=== PATIENT | female | born 1990 | race Caucasian/White ===

== ENCOUNTER 2023-10-05 11:54 | Emergency (ER) | payer BC, SELFPAY ==
--- NOTE | ~2023-10-05 | CT_ITS ---
EXAMINATION: CT abdomen pelvis w con DATE: 10/05/2023 14:45 INDICATION: Right lower quadrant abdominal pain. TECHNIQUE: Computed tomography (CT) of the abdomen and pelvis was performed with 100 mL Omnipaque 350 intravenous contrast. Automated exposure control and iterative reconstruction technique were employe d. The dose-length product was 254.45 mGy-cm. COMPARISON: None. FINDINGS: The visualized portions of the lung bases are clear without pneumonia or pleural effusion. The heart size is normal. No pericardial effusion. The liver is normal. There are changes of cholecys tectomy. The spleen, pancreas, adrenal glands, and kidneys are normal. There are no dilated loops of bowel. The appendix is normal. There are no pathologically enlarged lymph nodes. There is no free int raperitoneal fluid. The periuterine veins and left ovarian vein are enlarged, consistent with pelvic venous insufficiency. There is thoracolumbar levoscoliosis. IMPRESSION: 1. Pelvic venous insufficiency. Reviewed, dictated and finalized at location A.
[2023-10-05 11:59] VITALS: BP 111/83; PULSE 128; RESP 20; TEMP 36.6; O2SAT 99
[2023-10-05 12:34] VITALS: BP 134/97; O2SAT 100
[2023-10-05 12:44] LABS: Basophils Percent Auto 0.4 % (0.2-1.2); Eosinophils Absolute Auto 0.1 K/mm3 (0-0.3); Eosinophils Percent Auto 0.7 % (0-4.4); Hematocrit 46.8 % (37.0-47.0); Immature Granulocyte Absolute 0.02 K/mm3 (0.00-0.031); Immature Granulocyte Percent A 0.2 % (0-0.5); Lymphocytes Absolute Auto 2.01 K/mm3 (0.9-3.2); Lymphocytes Percent Auto 20.5 % (18.3-44.2); Mean Corpuscular HGB Conc 32.1 g/dl (32-36); Mean Corpuscular Hemoglobin 28.7 pg (26-34); Mean Corpuscular Volume 89.5 fl (80-100); Mean Platelet Volume 12.3 fl (7.4-10.4); Monocytes Absolute Auto 0.6 K/mm3 (0.1-0.6); Monocytes Percent Auto 5.8 % (2.6-8.5); Neutrophils Absolute Auto 7.1 K/mm3 (1.3-6.7); Neutrophils Percent Auto 72.4 % (45.5-73.1); Platelet Count Result 305 k/mm3 (150-375); Red Blood Count 5.23 M/mm3 (4.2-5.4); Red Cell Distribution Width 12.6 % (11.5-14.5); White Blood Count 9.8 K/mm3 (4.5-10.0)
[2023-10-05 13:00] LABS: Alanine Aminotransferase 22 U/L (6-35); Alkaline Phosphatase 79 U/L (38-126); Anion Gap 10 mmol/L (4-12); Aspartate Amino Transferase 28 U/L (14-36); Bilirubin,Total 0.6 mg/dL (0.2-1.3); Blood Urea Nitrogen 16 mg/dL (7-17); Calcium 9.7 mg/dL (8.4-10.2); Carbon Dioxide 24 mmol/L (22-30); Chloride 102 mmol/L (98-107); Estimated CRCL calculation 76 ml/min; Estimated Glomerular Filt Rate > 60; Glucose 84 mg/dL (65-110); Lipase 103 U/L (23-300); Potassium 3.9 mmol/L (3.4-5.0); Sodium 136 mmol/L (137-145)
--- NOTE | 2023-10-05 14:11 | ED.ABDPAIN ---
HPI - Abdominal Pain General Chief Complaint: Abdominal Pain Stated Complaint: abd pain Time Seen by Provider: 10/05/23 12:52 History of Present Illness HPI narrative: Patient is a healthy 32-year-old female with history of PCOS, prior cholecystectomy here with abdominal pain and vomiting. Patient states that Wednesday evening her vomiting began, she vomited continuously for about 20 hours and continues to have some significant nausea. She did kessler he notes some suprapubic and periumbilical pain, does note some pain above her umbilicus as well as in the right side of her abdomen. She did have a fever at home of 100.6 F. She denies any associated diarrhea. She does note she had some burning with urination last week which seems to have resolved this week. Patient continues to feel nauseous and weak, believes she is dehydrated. She does have a history of prior egg donation, last egg retrieval round was in February of 2023, she did 8 separate cycles, is not currently on any additional medications for this. Does not believe she could be . Related Data Home Medications Medication Instructions Recorded Confirmed dextroamphetamine-amphetamine ER 25 mg PO DAILY 06/15/22 25 mg 24hr capsule,extend release (Adderall XR) sertraline 50 mg tablet 50 mg PO DAILY 06/15/22 spironolactone 100 mg tablet 100 mg PO DAILY 06/15/22 Allergies Allergy/AdvReac Type Severity Reaction Status Date / Time No Known Allergies Allergy Verified 10/05/23 12:04 Review of Systems Review of Systems: All systems reviewed & are unremarkable except as noted in HPI and below PMFSH Past Medical History Medical History ADD (attention deficit disorder) Anxiety History of in vitro fertilization In vitro fertilization using donor eggs IBS (irritable bowel syndrome) Surgical History Surgical History History of cholecystectomy History of removal of ovarian cyst [place] teeth extracted Family History Family History Father Diabetes mellitus Hypertension Grandparent Breast cancer Malignant neoplasm of ovary Social History Social History Smoking status: Never smoker Alcohol intake: current Alcohol use details: occasional Substance use: never Occupation/Education: occupation Additional occupation/education comments: banker Gender identity (if verbalized by the patient): Female Sexual Orientation (if Verbalized by the Patient): Straight or Heterosexual Exam Narrative: GENERAL: Well-appearing, well-nourished, and in no acute distress. HEAD: Normocephalic, atraumatic. EYES: PERRLA and EOMI. ENT: Nares clear. Mucous membranes dry. NECK: Supple. CHEST: Clear to auscultation. No respiratory distress. HEART: Tachycardic. Normal peripheral pulses. ABDOMEN: Soft, tender in the suprapubic region, periumbilical region and RLQ, no rebound or guarding, nondistended. No CVA tenderness. EXTREMITIES: Normal range of motion. No edema. SKIN: Warm, dry, no rash. NEURO: No focal deficits. Alert and oriented x3. PSYCH: Normal mood and affect. Course Course Emergency Course: Chart review performed, patient here with abdominal pain, bloating, vomiting x2 days, endorsed a low-grade fever, afebrile in triage however she is tachycardic. One prior OBGYN visit in our system, she was seen for ovarian cysts. Triage workup reviewed, CBC unremarkable with a hemoglobin of 15, white blood cell count of 9.8. Electrolytes within normal limits, normal renal function, normal LFTs. Lipase normal. Patient seen evaluated, she is tachycardic and has some periumbilical and lower abdominal tenderness, concern for possible UTI versus colitis versus appendicitis. Will do CT abdomen pelvis, IV fluids, pain medication, antiemetics.
[2023-10-05] MEDS: MORPHINE SULFATE (*CRX) 4 MG/ML INJ IV PUSH (14:28)
[2023-10-05] MEDS: LACTATED RINGERS 1,000 ML 999 ML IV CONT (14:28)
[2023-10-05] MEDS: ONDANSETRON INJ 4 MG/2 ML VIAL IV PUSH (14:28)
[2023-10-05 14:31] VITALS: BP 132/86; PULSE 92; RESP 16; O2SAT 99
[2023-10-05 14:48] LABS: Appearance Urine Cloudy (Clear); Bacteria Urine 4+ /hpf; Bilirubin Urine Negative (Negative); Blood Urine Negative (Negative); Color Urine Dark Yellow (Yellow); Glucose Urine UA Negative (Negative); Ketones Urine 2+ mg/dL (Negative); Leukocyte Esterase Ur Negative LEU/UL (Negative); Need Manual Microscopic Reviewed; Nitrate Urine Negative (Negative); Protein Urine Trace mg/dL (Negative); Specific Grav Ur 1.038 (1.001-1.035); Squamous Epithelial Cell Urine Few /hpf (Few); pH Urine 5.5 (5.0-9.0)
[2023-10-05 14:49] LABS: Add Urine Microscopic? YES
[2023-10-05] MEDS: SODIUM CHLORIDE 0.9% IV 1,000 ML 999 ML IV CONT (15:17)
[2023-10-05 15:45] VITALS: BP 116/76; PULSE 76; RESP 16; TEMP 36.7; O2SAT 100
--- NOTE | 2023-10-07 15:41 | PC.NURSE ---
Message left with patient at [phone] on 10/07/23 at 1443 to return my call regarding testing. Patient returned my call at 1530. This director advised patient that her urine culture was not able to be processed by [facility] lab and that we recommended that she return to have a new specimen collected. Patient verbalized understanding. She was given directions for outpatient lab and informed that she would only be charged for one urine/culture test.
== END 2023-10-05 16:00 | disposition home or self-care (01) ==
PROVIDERS: Physician Assistant; Emergency Provider Student in an Organized Health Care Education/Training Program; PCP Physician Assistant
DX: N39.0 Urinary tract infection, site not specified (principal); E28.2 Polycystic ovarian syndrome; K58.9 Irritable bowel syndrome, unspecified; F98.8 Other specified behavioral and emotional disorders with onset usually occurring in childhood and adolescence; F41.9 Anxiety disorder, unspecified; Z90.49 Acquired absence of other specified parts of digestive tract; Z79.899 Other long term (current) drug therapy; I87.2 Venous insufficiency (chronic) (peripheral); N94.89 Other specified conditions associated with female genital organs and menstrual cycle
CPT/HCPCS: 36415; 74177; 80053; 81001; 81025; 83690; 85025; 87086; 96361; 96365; 96375; 99284; J0696; J2270; J2405; J7030; J7120; Q9967

== ENCOUNTER 2023-10-07 16:40 | Outpatient (CLI) | payer BC, SELFPAY | END 2023-10-07 16:41 | disposition home or self-care (01) | LOC: ANHLAB 16:41 | PROVIDERS: PCP Physician Assistant | DX: R11.10 Vomiting, unspecified (principal) | CPT/HCPCS: 87086 ==

== ENCOUNTER 2024-08-28 10:25 | Emergency (ER) | payer BC, SELFPAY ==
--- NOTE | ~2024-08-28 | CT_ITS ---
CT of the Abdomen and Pelvis: Indication: Abdominal pain Technique: 2.5 mm axial scans were obtained through the abdomen and pelvis following intravenous adm inistration of 100 cc of Omnipaque 350. Dose reduction technique was used on this scan by utilizing a utomated exposure control and iterative reconstruction technique. The dose-length product (DLP) was 3 53.22 mGy-cm. COMPARISON: 09/27/2023 Findings: Scans through the lung bases are unremarkable. The liver, spleen, pancreas, adrenals and kidneys are within normal limits. Cholecystectomy clips are present. No evidence of aortic aneurysm. No lymphadenopathy. No bowel obstruction or bowel wall thickening. There is no evidence to suggest acute appendicitis. Images through the pelvis were performed. Urinary bladder unremarkable. No pelvic mass seen. No ascit es. Impression: No significant abnormalities seen. Reviewed, dictated and finalized at [facility]. Impression: No significant abnormalities seen.
[2024-08-28 10:33] VITALS: BP 133/94; PULSE 100; RESP 18; TEMP 36.7; O2SAT 100
[2024-08-28 11:00] VITALS: BP 120/83; PULSE 96; RESP 17; O2SAT 99
--- NOTE | 2024-08-28 11:25 | ED_ITS ---
HPI - Abdominal Pain General Chief Complaint: Abdominal Pain Stated Complaint: abd pain, n/v Time Seen by Provider: 08/28/24 10:41 History of Present Illness HPI narrative: Patient is a 33-year-old female who presents to the ER with complaints of left upper quadrant abdominal pain. She reports her symptoms started abruptly this morning. Patient endorses vomiting multiple times prior to arrival. She also reports ?I am always bloated. She reports her last bowel movement was this morning and was normal for her. She denies any urinary symptoms, recent fevers, back pain. Patient nurses a history of cholecystectomy, constipation, and abdominal hernia. Related Data Home Medications ?Medication ?Instructions ?Recorded ?Confirmed ?Last Taken ?Type dextroamphetamine-amphetamine ER 25 mg PO DAILY 06/15/22 10/21/23 Unknown History 25 mg 24hr capsule,extend release (Adderall XR) sertraline 50 mg tablet 50 mg PO DAILY 06/15/22 10/21/23 Unknown History spironolactone 100 mg tablet 100 mg PO DAILY 06/15/22 10/21/23 Unknown History Allergies Allergy/AdvReac Type Severity Reaction Status Date / Time No Known Allergies Allergy Verified 08/28/24 10:25 Review of Systems 2 Review of Systems: All systems reviewed & are unremarkable except as noted in HPI and below PMFSH Past Medical History Medical History IBS (irritable bowel syndrome) Anxiety History of in vitro fertilization In vitro fertilization using donor eggs ADD (attention deficit disorder) Surgical History Surgical History [place] teeth extracted History of removal of ovarian cyst History of cholecystectomy Family History Family History Father Diabetes mellitus Hypertension Grandparent Breast cancer Malignant neoplasm of ovary Social History Social History Smoking status: Never smoker Alcohol intake: current Alcohol use details: occasional Substance use: never Do You Feel Safe in your Home?: Yes Lack of Transportation: No Lack of Food: Never True Current Housing: I Have Housing Concerned About Future Housing: No Difficulty Paying Gas/Electric Bills: No Difficulty Paying for Meds: No Currently Unemployed: No Education: Associate Degree Difficulty w/ Childcare or Family Care: No Living arrangements: with family Occupation/Education: occupation Additional occupation/education comments: banker Gender identity (if verbalized by the patient): Female Sexual Orientation (if Verbalized by the Patient): Straight or Heterosexual Exam 2 Narrative: GENERAL: Well appearing, well-nourished, non-toxic, in mild distress d/t pain. HEAD: Normocephalic, atraumatic. NECK: Supple. No adenopathy, no masses. RESPIRATORY: Airway patent, respirations nonlabored. Clear to auscultation bilaterally, no rales, rhonchi, wheezing. CARDIOVASCULAR: Regular rate and rhythm without murmurs, rubs, or gallops. Peripheral pulses 2+ and equal bilaterally. ABDOMINAL: Soft, tender LUQ, nondistended, no hepatosplenomegaly. Normoactive BS. MUSCULOSKELETAL: Moves all extremities. Strength/ROM intact without gross deformities. SKIN: Warm, dry, normal color. No rashes. NEURO: A&O X3. Speech clear. Cranial nerves II-XII intact. No ataxic movements. PSYCHIATRIC: Appropriate mood and affect. Normal interaction. Course Vital Signs Vital signs: Vital Signs Temperature 36.7 C 08/28/24 10:33 Pulse Rate 100 08/28/24 10:33 Respiratory Rate 18 08/28/24 10:33 Blood Pressure 133/94 H 08/28/24 10:33 Pulse Oximetry 100 08/28/24 10:33 Temperature 36.7 C 08/28/24 10:33 Pulse Rate 87 08/28/24 16:00 Respiratory Rate 18 08/28/24 16:00 Blood Pressure 107/78 08/28/24 16:00 Pulse Oximetry 99 08/28/24 16:00 MDM - Abdominal Pain MDM Narrative Medical decision making narrative: Patient is a 33-year-old female who presents to the ER with complaints of left upper quadrant abdominal pain. She reports her symptoms started abruptly this morning. Patient endorses vomiting multiple times prior to arrival. She also reports ?I am always bloated. She reports her last bowel movement was this morning and was normal for her. She denies any urinary symptoms, recent fevers, back pain. Patient nurses a history of cholecystectomy, constipation, and abdominal hernia. Labs Ordered: CBC, CMP, UDS, UA, lipase Imaging Ordered: CT abdomen pelvis Medications Ordered: 1 L normal saline IV bolus, Pepcid IV, Zofran 4 mg Results: Patient's white blood cell count was 15.3. Her CMP is unremarkable. Patient's urinalysis was also unremarkable. Her CT scan indicated no acute abnormalities. Diagnosis: Gastroenteritis Patient Education/Shared MDM: Results lab work and imaging shared with patient. She endorses mild improvement following medication administration. Pt will be given Reglan and Benadryl for nausea and Bentyl for abdominal pain. She will be monitored for a short time afterwards then discharged home. Patient endorses significant relief following the Bentyl, her Reglan, and Benadryl. She reports she is ready to be discharged home. Patient strongly advised to maintain hydration status upon discharge and follow-up with her PCP as soon as possible. She will be discharged home with a prescription for Bentyl, Lactulose (has worked in the past) and Zofran. Strict return precautions provided. Patient verbalized understanding is in agreement with plan. Vital signs stable at time of discharge. All questions answered. Differential Diagnosis Differential diagnosis: Likely abdominal pain, acute appendicitis, calculus of kidney, constipation, diverticulitis, gastroenteritis, pancreatitis and small bowel obstruction Lab Data Attestation: I reviewed the patient's lab results. 08/28/24 11:21 08/28/24 11:21 Labs: Lab Results 08/28/24 08/28/24 08/28/24 Range/Units 11:21 11:27 12:36 WBC 15.3 H (4.5-10.0) K/mm3 RBC 4.61 (4.2-5.4) M/mm3 Hgb 13.4 (12.0-15.0) g/dL Hct 41.3 (37.0-47.0) % MCV 89.6 (80-100) fl MCH 29.1 (26-34) pg MCHC 32.4 (32-36) g/dl RDW 13.1 (11.5-14.5) % Plt Count 319 (150-375) k/mm3 MPV 11.3 H (7.4-10.4) fl Immature Gran % (Auto) 0.5 (0-0.5) % Neut % (Auto) 84.1 H (45.5-73.1) % Lymph % (Auto) 8.4 L (18.3-44.2) % [place] % (Auto) 5.4 (2.6-8.5) % Eos % (Auto) 1.3 (0-4.4) % Baso % (Auto) 0.3 (0.2-1.2) % Lymph # (Auto) 1.28 (0.9-3.2) K/mm3 [place] # (Auto) 0.8 H (0.1-0.6) K/mm3 Eos # (Auto) 0.2 (0-0.3) K/mm3 Baso # (Auto) 0.0 (0.0-0.1) K/mm3 Abs Immat Gran (auto) 0.07 H (0.00-0.031) K/mm3 Absolute Neuts (auto) 12.9 H (1.3-6.7) K/mm3 Absolute Nucleated RBC 0.000 (0.0-0.012) K/mm3 Nucleated RBC % 0.0 (0.0-0.2) % Sodium 137 (137-145) mmol/L Potassium 4.3 (3.4-5.0) mmol/L Chloride 103 (98-107) mmol/L Carbon Dioxide 23 (22-30) mmol/L Anion Gap 11 (4-12) mmol/L BUN 11 D (7-17) mg/dL Creatinine 0.79 (0.7-1.0) mg/dL Estim Creat Clear Calc 87 ml/min Estimated GFR > 60 (59 - ) Glucose 89 (65-110) mg/dL Calcium 9.3 (8.4-10.2) mg/dL Total Bilirubin 0.3 (0.2-1.3) mg/dL AST 25 (14-36) U/L ALT 22 (6-35) U/L Alkaline Phosphatase 68 (38-126) U/L Total Protein 8.0 (6.3-8.2) g/dL Albumin 4.6 (3.5-5.1) g/dL Lipase 81 (23-300) U/L Urine Color Dark yellow (Yellow) Urine Appearance Clear (Clear) Urine pH 5.5 (5.0-9.0) Ur Specific [place] 1.033 (1.001-1.035) Urine Protein Trace (Negative) mg/dL Urine Glucose (UA) Negative (Negative) mg/dL Urine Ketones Trace H (Negative) mg/dL Ur Blood (Man) Negative (Negative) Urine Nitrate Negative (Negative) Urine Bilirubin Negative (Negative) Urine Urobilinogen 0.2 (<2.0) mg/dL Add Ur Microanalysis Reviewed Leukocyte Esterase Rfl Negative (Negative) KEVIN/UL Urine RBC 0-2 (0-2) /hpf Urine WBC 0-5 (0-3) /hpf Ur Squamous Epith Cells None seen (Few) /hpf Urine Bacteria None seen /hpf Urine Casts 11-20 Granular Casts 5-9 H (None) /lpf Urine Mucus Present /lpf POC Urine HCG, Qual Negative (Negative) Urine Opiates Screen Negative (Negative) Urine Methadone Screen Negative (Negative) Ur Barbiturates Screen Negative (Negative) Ur Phencyclidine Scrn Negative (Negative) Ur Amphetamine Screen Positive A (Negative) U Benzodiazepines Scrn Negative (Negative) Urine Cocaine Screen Negative (Negative) U Cannabinoids Screen Negative (Negative) Imaging Data Attestation: I personally reviewed and interpreted this imaging study as follows: Radiologist's impression: ITS Impressions Abdomen/Pelvis CT 08/28/24 13:15 Impression: No significant abnormalities seen. Discharge Plan Discharge Clinical Impression: Gastroenteritis, Constipation Patient Disposition: Home Condition: Stable Instructions: Antibiotic Form, Constipation (ED), Gastroenteritis (ED) Additional Instructions: Please return to the ER with any worsening symptoms. Follow-up with primary care provider as soon as possible. Take all medications as prescribed, including regularly scheduled medications. Patient Language: Jordanian Prescriptions: New lactulose 20 gram packet 20 g PO QID Qty: 30 0RF dicyclomine 20 mg tablet 20 mg PO TID Qty: 20 0RF ondansetron 8 mg tablet,disintegrating 8 mg PO Q12H PRN (Reason: nausea and vomiting) Qty: 10 0RF No Action dextroamphetamine-amphetamine [Adderall XR] 25 mg capsule,extended release 24hr 25 mg PO DAILY sertraline 50 mg tablet 50 mg PO DAILY spironolactone 100 mg tablet 100 mg PO DAILY L norgest/e.estradiol-e.estrad 0.15 mg-30 mcg (84)/10 mcg (7) tablets,dose pack,3 month 1 tablet PO Q24H Qty: 91 4RF Follow-up/Referrals: Declan,MARIO Joe [Primary Care Provider] - Stand Alone Forms: Work/School Release IP Time of Disposition: 16:28
[2024-08-28 11:29] LABS: Basophils Percent Auto 0.3 % (0.2-1.2); Eosinophils Absolute Auto 0.2 K/mm3 (0-0.3); Eosinophils Percent Auto 1.3 % (0-4.4); Hematocrit 41.3 % (37.0-47.0); Hemoglobin 13.4 g/dL (12.0-15.0); Immature Granulocyte Absolute 0.07 K/mm3 (0.00-0.031); Immature Granulocyte Percent A 0.5 % (0-0.5); Lymphocytes Absolute Auto 1.28 K/mm3 (0.9-3.2); Lymphocytes Percent Auto 8.4 % (18.3-44.2); Mean Corpuscular HGB Conc 32.4 g/dl (32-36); Mean Corpuscular Hemoglobin 29.1 pg (26-34); Mean Corpuscular Volume 89.6 fl (80-100); Mean Platelet Volume 11.3 fl (7.4-10.4); Monocytes Absolute Auto 0.8 K/mm3 (0.1-0.6); Monocytes Percent Auto 5.4 % (2.6-8.5); Neutrophils Absolute Auto 12.9 K/mm3 (1.3-6.7); Neutrophils Percent Auto 84.1 % (45.5-73.1); Platelet Count Result 319 k/mm3 (150-375); Red Blood Count 4.61 M/mm3 (4.2-5.4); Red Cell Distribution Width 13.1 % (11.5-14.5); White Blood Count 15.3 K/mm3 (4.5-10.0)
[2024-08-28] MEDS: SODIUM CHLORIDE 0.9% IV 1,000 ML 999 ML IV CONT (11:33)
[2024-08-28] MEDS: FAMOTIDINE 20 MG/2 ML VIAL IV PUSH (11:34)
[2024-08-28] MEDS: ONDANSETRON INJ 4 MG/2 ML VIAL IV PUSH (11:34)
[2024-08-28 11:42] LABS: Alanine Aminotransferase 22 U/L (6-35); Albumin Level 4.6 g/dL (3.5-5.1); Alkaline Phosphatase 68 U/L (38-126); Anion Gap 11 mmol/L (4-12); Aspartate Amino Transferase 25 U/L (14-36); Bilirubin,Total 0.3 mg/dL (0.2-1.3); Blood Urea Nitrogen 11 mg/dL (7-17); Calcium 9.3 mg/dL (8.4-10.2); Carbon Dioxide 23 mmol/L (22-30); Chloride 103 mmol/L (98-107); Estimated CRCL calculation 87 ml/min; Estimated Glomerular Filt Rate > 60; Glucose 89 mg/dL (65-110); Lipase 81 U/L (23-300); Potassium 4.3 mmol/L (3.4-5.0); Sodium 137 mmol/L (137-145)
--- OUTSIDE RECORDS SUMMARY | 2024-08-28 11:47 | XMS_ITS | Clinical Summary ---
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
--- OUTSIDE RECORDS SUMMARY | 2024-08-28 11:47 | XMS_ITS | Data Portability ---
Author Organization [facility] Cassandra Carvalho Address [address] [place] [address] Care Team Providers Care Superintendent Nonselling Name Role Phone EM TURNER Primary Care Provider MARGARET [employer] Manager Assessment No assessment recorded. Plan of Treatment Reminders Order Date Submit Date Provider Last Modified By Organization Details Last Modified Time Details Appointments VIDEO VISIT 15 2024 01:30P M CRISTAL Cox Not available Not available Not available Lab CMP, serum or plasma 2024 025 [email or web address] [facility], [address], [place], [address], 07/10/2024 16:21:39 CBC w/ auto diff 2024 025 [email or web address] [facility], [address], [place], [address], 07/10/2024 16:21:39 TSH + free T4, serum 2024 025 [email or web address] [facility], [address], [place], [address], 07/10/2024 16:21:39 lipid panel, serum 2024 025 [email or web address] [facility], [address], [place], [address], 07/10/2024 16:21:39 HbA1c (hemoglob in A1c), blood [address], [address]22 [address], [place], [address], 07/10/2024 16:21:39 CMP, serum or plasma 2023 024 [facility], [address], [place], [address], 10/10/2023 08:36:47 CBC w/ auto diff 2023 024 [facility], [address], [place], [address], 10/10/2023 08:36:48 TSH + free T4, serum 2023 024 [facility], [address], [place], [address], 10/10/2023 08:36:47 lipid panel, serum 2023 024 [facility], [address], [place], [address], 10/10/2023 08:36:46 HbA1c (hemoglob in A1c), blood 2023 024 [facility], [address], [place], [address], 10/10/2023 08:36:48 Referral None recorded. Procedures None recorded. Surgeries None recorded. Imaging None recorded. Medication Orders dextroamp hetamine- amphetami ne ER 25 mg 24hr capsule,e xtend release 2023 024 [facility][id number], [address], [place], [id number], 03/31/2024 16:08:22 sertralin e 100 mg tablet 2023 [address]24 [address] [id number], [address] [facility], [place], [place], [id number], 10/07/2023 23:34:54 dextroamp hetamine- amphetami ne ER 25 mg 24hr capsule,e xtend release 2023 024 [facility] #[id number], [address] [facility], [place], [place], [id number], 09/17/2023 16:49:41 Patient TargetsNo targets recorded. Patient InstructionsNo instructions recorded. Reason for Referral None Reported. Results Created Date Observation Date Name Description Value Unit Range Abnormal Flag Note LastModifiedBy Organization Detail LastModifiedTime 10/09/19 24 10/10/2023 LIPID PANEL W/ CHOL/ HDL RATIO cholesterol, total 228 mg/dL 100-19 9 above high normal Not Available [facility] ([facility]) [address] [place], [address], 10/10/2023 08:36:46 10/09/19 24 10/10/2023 LIPID PANEL W/ CHOL/ HDL RATIO triglyceride s 92 mg/dL 0-149 Not Available [facility] ([facility]) [address] [place], [address], 10/10/2023 08:36:46 10/09/19 24 10/10/2023 LIPID PANEL W/ CHOL/ HDL RATIO HDL cholesterol 81 mg/dL >39 Not Available [facility] ([facility]) [address] [place], [address], 10/10/2023 08:36:46 10/09/19 24 10/10/2023 LIPID PANEL W/ CHOL/ HDL RATIO VLDL cholesterol juanito 16 mg/dL 5-40 Not Available [facility] ([facility]) [address] [place], [address], 10/10/2023 08:36:46 10/09/19 24 10/10/2023 LIPID PANEL W/ CHOL/ HDL RATIO LDL chol calc ([facility]) 131 mg/dL 0-99 above high normal Not Available [facility] ([facility]) [address] [place], [address], 10/10/2023 08:36:46 10/09/19 24 10/10/2023 LIPID PANEL W/ CHOL/ HDL RATIO T. chol/HDL ratio 2.8 ratio 0.0-4. 4 T. Chol/ HDL Ratio Men Women 1/2 Avg.R isk 3.4 3.3 Avg.R isk 5.0 4.4 2X Avg.R isk 9.6 7.1 3X Avg.R isk 23.4 11.0 Not Available [facility] ([facility]) [address] [place], [address], 10/10/2023 08:36:46 10/09/19 24 10/10/2023 TSH+F REE T4 TSH 2.210 uIU/m L 0.450- 4.500 Not Available [facility] ([facility]) [address] [place], [address], 10/10/2023 08:36:47 10/09/19 24 10/10/2023 TSH+F REE T4 T4,free(dire ct) 1.30 NG/dL 0.82-1 .77 Not Available [facility] ([facility]) [address] [place], [address], 10/10/2023 08:36:47 10/09/19 24 10/10/2023 COMP. METAB OLIC PANEL (14) glucose 88 mg/dL 70-99 Not Available [facility] ([facility]) [address] [place], [address], 10/10/2023 08:36:47 10/09/19 24 10/10/2023 COMP. METAB OLIC PANEL (14) BUN 8 mg/dL 6-20 Not Available [facility] ([facility]) [address] [place], [address], 10/10/2023 08:36:47 10/09/19 24 10/10/2023 COMP. METAB OLIC PANEL (14) creatinine 0.85 mg/dL 0.57-1 .00 Not Available [facility] ([facility]) [address] [facility], [place], [address], 10/10/2023 08:36:47 10/09/19 24 10/10/2023 COMP. METAB OLIC PANEL (14) eGFR 94 mL/mi n/1.7 3 >59 Not Available [facility] ([facility]) [address] [facility], [place], [address], 10/10/2023 08:36:47 10/09/19 24 10/10/2023 COMP. METAB OLIC PANEL (14) BUN/creatini ne ratio 9 9-23 Not Available [facility] ([facility]) [address] [facility], [place], [address], 10/10/2023 08:36:47 10/09/19 24 10/10/2023 COMP. METAB OLIC PANEL (14) sodium 137 mmol/ L 134-14 4 Not Available [facility] ([facility]) [address] [place], [address], 10/10/2023 08:36:47 10/09/19 24 10/10/2023 COMP. METAB OLIC PANEL (14) potassium 4.6 mmol/ L 3.5-5. 2 Not Available [facility] ([facility]) [address] [facility], [place], [address], 10/10/2023 08:36:47 10/09/19 24 10/10/2023 COMP. METAB OLIC PANEL (14) chloride 101 mmol/ L 96-106 Not Available [facility] ([facility]) [address] [facility], [place], [address], 10/10/2023 08:36:47 10/09/19 24 10/10/2023 COMP. METAB OLIC PANEL (14) carbon dioxide, total 21 mmol/ L 20-29 Not Available [facility] ([facility]) [address] [place], [address], 10/10/2023 08:36:47 10/09/19 24 10/10/2023 COMP. METAB OLIC PANEL (14) calcium 10.0 mg/dL 8.7-10 .2 Not Available [facility] ([facility]) [address] [facility], [place], [address], 10/10/2023 08:36:47 10/09/19 24 10/10/2023 COMP. METAB OLIC PANEL (14) protein, total 7.2 g/dL 6.0-8. 5 Not Available [facility] ([facility]) [address] [facility], [place], [address], 10/10/2023 08:36:47 10/09/19 24 10/10/2023 COMP. METAB OLIC PANEL (14) albumin 4.4 g/dL 4.0-5. 0 Not Available [facility] ([facility]) [address] [place], [address], 10/10/2023 08:36:47 10/09/19 24 10/10/2023 COMP. METAB OLIC PANEL (14) globulin, total 2.8 g/dL 1.5-4. 5 Not Available [facility] ([facility]) [address] [place], [address], 10/10/2023 08:36:47 10/09/19 24 10/10/2023 COMP. METAB OLIC PANEL (14) A/G ratio 1.6 1.2-2. 2 Not Available [facility] ([facility]) [address] [place], [address], 10/10/2023 08:36:47 10/09/19 24 10/10/2023 COMP. METAB OLIC PANEL (14) bilirubin, total <0.2 mg/dL 0.0-1. 2 Not Available [facility] ([facility]) [address] [facility], [place], [address], 10/10/2023 08:36:47 10/09/19 24 10/10/2023 COMP. METAB OLIC PANEL (14) alkaline phosphatase 69 IU/L 44-121 Not Available [facility] ([facility]) [address] [place], [address], 10/10/2023 08:36:47 10/09/19 24 10/10/2023 COMP. METAB OLIC PANEL (14) AST (SGOT) 14 IU/L 0-40 Not Available [facility] ([facility]) [address] [facility], [place], [address], 10/10/2023 08:36:47 10/09/19 24 10/10/2023 COMP. METAB OLIC PANEL (14) ALT (SGPT) 13 IU/L 0-32 Not Available [facility] ([facility]) [address] [facility], [place], [address], 10/10/2023 08:36:47 10/09/19 24 10/10/2023 HEMOG LOBIN A1C hemoglobin A1C 5.5 % 4.8-5. 6 Predi abete s: 5.7 - 6.4 Diabe mj: >6.4 Glyce andrés contr ol for adult s with diabe mj: <7.0 Not Available [facility] ([facility]) [address] [facility], [place], [address], 10/10/2023 08:36:48 10/09/19 24 10/10/2023 CBC WITH DIFFE RENTI AL/PL ATELE T WBC 5.5 x10e3 /uL 3.4-10 .8 Not Available [facility] ([facility]) [address] [facility], [place], [address], 10/10/2023 08:36:48 10/09/19 24 10/10/2023 CBC WITH DIFFE RENTI AL/PL ATELE T RBC 4.74 x10e6 /uL 3.77-5 .28 Not Available [facility] ([facility]) [address] [facility], [place], [address], 10/10/2023 08:36:48 10/09/19 24 10/10/2023 CBC WITH DIFFE RENTI AL/PL ATELE T hemoglobin 13.5 g/dL 11.1-1 5.9 Not Available [facility] ([facility]) [address] [facility], [place], [address], 10/10/2023 08:36:48 10/09/1910/10/2023 CBC WITH DIFFE RENTI AL/PL ATELE T hematocrit 41.9 % 34.0-4 6.6 Not Available [facility] ([facility]) [address] [facility], [place], [address], 10/10/2023 08:36:48 10/09/19 24 10/10/2023 CBC WITH DIFFE RENTI AL/PL ATELE T MCV 88 fL 79-97 Not Available [facility] ([facility]) [address] [place], [address], 10/10/2023 08:36:48 10/09/1910/10/2023 CBC WITH DIFFE RENTI AL/PL ATELE T MCH 28.5 pg 26.6-3 3.0 Not Available [facility] ([facility]) [address] [place], [address], 10/10/2023 08:36:48 10/09/19 24 10/10/2023 CBC WITH DIFFE RENTI AL/PL ATELE T MCHC 32.2 g/dL 31.5-3 5.7 Not Available [facility] ([facility]) [address] [place], [address], 10/10/2023 08:36:48 10/09/19 24 10/10/2023 CBC WITH DIFFE RENTI AL/PL ATELE T RDW 12.0 % 11.7-1 5.4 Not Available [facility] ([facility]) [address] [facility], [place], [address], 10/10/2023 08:36:48 10/09/19 24 10/10/2023 CBC WITH DIFFE RENTI AL/PL ATELE T platelets 279 x10e3 /uL 150-45 0 Not Available [facility] ([facility]) [address] [facility], [place], [address], 10/10/2023 08:36:48 10/09/19 24 10/10/2023 CBC WITH DIFFE RENTI AL/PL ATELE T neutrophils 56 % notest ab. Not Available [facility] ([facility]) [address] [facility], [place], [address], 10/10/2023 08:36:48 10/09/19 24 10/10/2023 CBC WITH DIFFE RENTI AL/PL ATELE T lymphs 34 % notest ab. Not Available [facility] ([facility]) [address] [facility], [place], [address], 10/10/2023 08:36:48 10/09/19 24 10/10/2023 CBC WITH DIFFE RENTI AL/PL ATELE T monocytes 7 % notest ab. Not Available [facility] ([facility]) [address] [facility], [place], [address], 10/10/2023 08:36:48 10/09/19 24 10/10/2023 CBC WITH DIFFE RENTI AL/PL ATELE T eos 2 % notest ab. Not Available [facility] ([facility]) [address] [facility], [place], [address], 10/10/2023 08:36:48 10/09/19 24 10/10/2023 CBC WITH DIFFE RENTI AL/PL ATELE T basos 1 % notest ab. Not Available [facility] ([facility]) [address] [facility], [place], [address], 10/10/2023 08:36:48 10/09/19 24 10/10/2023 CBC WITH DIFFE RENTI AL/PL ATELE T neutrophils (absolute) 3.1 x10e3 /uL 1.4-7. 0 Not Available [facility] ([facility]) [address] [facility], [place], [address], 10/10/2023 08:36:48 10/09/19 24 10/10/2023 CBC WITH DIFFE RENTI AL/PL ATELE T lymphs (absolute) 1.9 x10e3 /uL 0.7-3. 1 Not Available [facility] ([facility]) [address] [facility], [place], [address], 10/10/2023 08:36:48 10/09/19 24 10/10/2023 CBC WITH DIFFE RENTI AL/PL ATELE T monocytes(ab solute) 0.4 x10e3 /uL 0.1-0. 9 Not Available [facility] ([facility]) [address] [facility], [place], [address], 10/10/2023 08:36:48 10/09/19 24 10/10/2023 CBC WITH DIFFE RENTI AL/PL ATELE T eos (absolute) 0.1 x10e3 /uL 0.0-0. 4 Not Available [facility] ([facility]) [address] [place], [address], 10/10/2023 08:36:48 10/09/19 24 10/10/2023 CBC WITH DIFFE RENTI AL/PL ATELE T baso (absolute) 0.0 x10e3 /uL 0.0-0. 2 Not Available [facility] ([facility]) [address] [place], [address], 10/10/2023 08:36:48 10/09/19 24 10/10/2023 CBC WITH DIFFE RENTI AL/PL ATELE T immature granulocytes 0 % notest ab. Not Available [facility] ([facility]) [address] [facility], [place], [address], 10/10/2023 08:36:48 10/09/19 24 10/10/2023 CBC WITH DIFFE RENTI AL/PL ATELE T immature grans (abs) 0.0 x10e3 /uL 0.0-0. 1 Not Available [facility] ([facility]) [address] [facility], [place], [address], 10/10/2023 08:36:48 10/05/19 24 10/05/2023 CT, abdom en + pelvi s, w/ contr ast No observ ation record ed. [email or web address] [place] [id number], [place], [address], 10/09/2023 09:56:57 Result Notes None recorded. Problems Name Problem SNOMED Code Status Onset Date Resolution Date Notes Provider Name and Address Organization Details Recorded Time Generalized anxiety disorder 13711858 Active 2023 CRISTAL Cox Attn: Lakia veliz,[address] [place], [address], [facility] 4 23:34:42 Attention deficit hyperactivi ty disorder 771603266 Active 2023 CRISTAL Cox Attn: Lakia veliz,[address] [place], [address], [facility] 4 23:34:44 Long-term drug therapy Active 2023 CRISTAL Cox Attn: Lakia veliz,[address] [place], [address], [facility] 4 23:34:45 Hyperlipide kayode 88161472 Active 2023 CRISTAL Cox Attn: Lakia veliz,[address] [place], [address], [facility] 4 13:52:05 Body mass index 20-24 - normal 765207400 Active 2023 CRISTAL Cox Attn: Lakia veliz,[address], [place], [address], [place] [facility] 4 22:17:06 Positive screening for depression on PHQ-9 (Patient Health Questionnai re 9) 7774874373772 00 Active 2024 CRISTAL Cox Attn: Lakia veliz,[address], [place], [address], [place] [facility] 5 22:37:09 Problem Notes None recorded. Procedures Surgical History Date Name Laterality Status Provider Name and Address Organization Details Recorded Time Cholecystectomy completed Pat Prado MA [place] - [facility] 09/17/2023 16:35:40 Imaging Results Imaging Date Name Status LastModified by Organiz ation Details LastModified Time 10/05/2023 CT, abdomen + pelvis, w/ contrast completed [email or web address] [facility] [address], [place], [address], 10/09/2023 09:56:57 Procedure Notes None recorded. Medical Equipment None Reported. Allergies No known drug allergies Medications Name Sig Start Date Stop Date Status Note LastModified by Organization Details LastModified Time spironolact one 100 mg tablet TAKE 1 TABLET BY MOUTH EVERY DAY active Not Available Not Available No t Available sertraline 100 mg tablet Take 1 tablet by mouth daily. 2024 active Not Available Not Available Not Avai lable cephalexin 500 mg capsule TAKE 1 CAPSULE BY MOUTH EVERY 6 HOURS FOR 7 DAYS 11/01 completed Not Available Not Available Not Available cabergoline 0.5 mg tablet INSERT 1 TABLET VAGINALLY EVERY NIGHT DIRECTED active Not Available Not Available No t Available ondansetron 4 mg disintegrat ing tablet DISSOLVE 1 TABLET ON THE TONGUE EVERY 8 HOURS NEEDED FOR NAUSEA OR VOMITING active Not Available Not Available No t Available dextroamphe tamine-amph etamine ER 25 mg 24hr capsule,ext end release Take 1 capsule by oral route for 30 days. active Not Available Not Available No t Available drospirenon e 3 mg-ethinyl estradiol 0.02 mg tablet TAKE 1 TABLET BY MOUTH DAILY 07/10 completed Not Available Not Available Not Available azelastine 137 mcg-flutica sone 50 mcg/spray nasal spray SHAKE LIQUID AND USE 1 SPRAY IN EACH NOSTRIL EVERY 12 HOURS FOR 7 DAYS 09/16 completed Not Available Not Available Not Available Simpesse 0.15 mg-30 mcg (84)/10 mcg(7) tablets,3 month dose pack TAKE 1 TABLET BY MOUTH EVERY 24 HOURS active Not Available Not Available No t Available Vitals Date Recorded Body weight Body mass index (BMI) Body height Respiratory rate Oxygen saturation Oxygen saturation in Arterial blood by Pulse oximetry Heart rate Systolic blood pressure Diastolic blood pressure Provider Name and Address Organization Details Last Updated DateTime 4 [address]5900.3 8 g 21 kg/m2 170.18 cm 20 /min 99 % 99 % 88 /min 128 mm[Hg] 82 mm[Hg] Pat Prado MA [facility] 4 16:34:06 Date Recorded Body height Body mass index (BMI) Body weight Heart rate Oxygen saturation Oxygen saturation in Arterial blood by Pulse oximetry Systolic blood pressure Diastolic blood pressure Provider Name and Address Organization Details Last Updated DateTime 4 170.18 cm 22.2 kg/m2 13402.6 8 g 90 /min 100 % 100 % 118 mm[Hg] 70 mm[Hg] Yeni Roblero MA [facility] 4 15:48:19 Date Recorded Respiratory rate Systolic blood pressure Diastolic blood pressure Provider Name and Address Organization Details Last Updated DateTime 03/31/2024 20 /min 110 mm[Hg] 80 mm[Hg] CRISTAL Cox Attn: Accounting, [address] [place], [address], [facility] 03/31/2024 16:13:44 Date Recorded Body height Body mass index (BMI) Body weight Oxygen saturation Oxygen saturation in Arterial blood by Pulse oximetry Heart rate Systolic blood pressure Diastolic blood pressure Provider Name and Address Organization Details Last Updated DateTime 5 170.18 cm 22.1 kg/m2 44059.5 2 g 97 % 97 % 111 /min 132 mm[Hg] 80 mm[Hg] Pat Prado [place] - [facility] 16:06:21 Date Recorded Respiratory rate Systolic blood pressure Diastolic blood pressure Provider Name and Address Organization Details Last Updated DateTime 07/10/2024 16 /min 110 mm[Hg] 80 mm[Hg] CRISTAL Cox Attn: [address] [facility], [place], [address], [place] [facility] 07/10/2024 16:19:27 Social History Question Answer Notes LastModified by Organizat ion Details LastModified Time Tobacco Smoking Status Never Smoker Pat Prado MA null, [place] - [facility] 09/16/2023 14:35:16 Do You Have An Advance Directive? No Information not available 09/16/2023 What Is Your Level Of Alcohol Consumption? Occasional Information not available 09/16/2023 Are You Blind Or Do You Have Difficulty Seeing? No Information not available 09/16/2023 What Is Your Level Of Caffeine Consumption? Moderate Coffee Information not available 09/16/2023 In The 14 Days Before Symptom Onset, Have You Had Close Contact With A Laboratory-confir med COVID-19 While That Case Was Ill? No Information not available 09/16/2023 In The 14 Days Before Symptom Onset, Have You Had Close Contact With A Person Who Is Under Investigation For COVID-19 While That Person Was Ill? No Information not available 09/16/2023 Have You Been To An Area Known To Be High Risk For COVID-19? No Information not available 09/16/2023 Are You Currently Employed? Yes Information not available 07/10/2024 Are You Deaf Or Do You Have Serious Difficulty Hearing? No Information not available 09/16/2023 What Type Of Diet Are You Following? REGULAR Information not available 09/16/2023 Are There Any Guns Present In Your Home? No Information not available 09/16/2023 What Was The Date Of Your Most Recent Tobacco Screening? 07/10/2024 Information not available 07/10/2024 What Is Your Relationship Status? Information not available 09/16/2023 Do You Use Your Seat Belt Or Car Seat Routinely? Yes Information not available 09/16/2023 Do You Have Smoke And Carbon Monoxide Detectors In Your Home? Yes Information not available 09/16/2023 Do You Use Any Illicit Or Recreational Drugs? No Information not available 09/16/2023 Do You Use Sunscreen Routinely? Yes Information not available 09/16/2023 Has Tobacco Cessation Counseling Been Provided? Yes Information not available 09/16/2023 On What Date Was Tobacco Cessation Counseling Provided? 07/10/2024 Information not available 07/10/2024 Do You Or Have You Ever Used Any Other Forms Of Tobacco Or Nicotine? No Information not available 09/16/2023 Sex: Female Functional Status Question Answer Note LastModified by Organization D etails LastModified Time Are you able to care for yourself? Yes Information not available 09/16/2023 What is your exercise level? Moderate daily Information not available 09/16/2023 Mental Status None recorded. Family History Relationship Description Onset Age of this Age Resolved Age Notes LastModified by Organization Details LastModified Time Father Cerebrovascu lar accident [email or web address] Not available 02/2024 16:35:51 Father Diabetes mellitus [email or web address] Not available 2023 16:35:56 Father Heart disease [email or web address] Not available 2023 16:36:01 Father Hypertensive disorder [email or web address] Not available 2023 16:36:06 Father Hypercholest erolemia [email or web address] Not available 2023 16:36:10 Medical History Condition Response Coronary Artery Disease N Other N High Blood Pressure N Atrial Fibrillation N Kidney or Bladder Problems N Thyroid Problems N GI Problems Y Depression Y COPD N Blood Clots N Skin Problems N Anemia N Heart Attack (HI) N Anxiety Disorder Y Diabetes N Muscle, Joint, or Bone Problems N Seizures/Epilepsy N Acid Reflux (GERD) Y Cancer N Stroke N Asthma N Allergies N High Cholesterol N Hepatitis N Liver Disease N Headaches N Heart Failure N Osteoporosis N Gynecological History Statement/Question Response Flow Moderate Date of LMP 05/03/2024 Menses Monthly N Duration of Flow (days) Current Control Method BCPs LMP Approximate Obstetrics History GPAL:G 0 P 0 0 0 0 Immunizations Vaccine Type Date Status Note Provider Nam e and Address Organization Details Recorded Time COVID-19 vaccine, vector-nr, rS-Ad26, PF, 0.5 mL 10/08/2020 completed Pat Prado [place] null, [place] - [facility] 07/10/2024 16:04:05 Past Encounters Encounter ID Performer Location Encounter Start Date Encounter Closed Date Diagnosis/Indication Diagnosis SNOMED-CT Code Diagnosis ICD10 Code Diagnosis Note [id number] CRISTAL Cox [facility] [address] [place] [address] 09/17/2023 15:59:16 10/11/2023 19:23:40 Generalized anxiety disorder 57398886 F41.1 stable on sertraline 100mg daily. refill sent out. f/u 6 months. Attention deficit hyperactivity disorder 077439216 F90.9 stable on adderall ER 25mg daily .refill sent out. Long-term drug therapy 556650917 Z79.899 routine cbc, cmp and TFTs due Cholesterol screening 27 9138229 Z13.220 fasting lipids due Diabetes m ellitus screening 631562385 Z13.1 a1c screening is due [id number] CRISTAL Cox [facility] [address] [place] [address] 03/31/2024 15:38:50 03/31/2024 16:16:57 Generalized anxiety disorder 57047997 F41.1 stable on sertraline 100mg daily. Attention deficit hyperactivity disorder 432611636 F90.9 stable on adderall ER 25mg daily refill given, three-elke h appointmen t may contract in place Long-term drug therapy 007929753 Z79.899 Routine labs are up-to-date Hyperlipidemia 14225789 E78.5 LDL cholestero l was 131, HDL 81 triglyceri laura 92 and total 228. We will continue to monitor this as her diet and exercise are already in line [facility] healthcare th examination [id number] Z00.01 wellness exam completed Body mass index 20-24 - normal [id number] Z68.22 BMI is 22.2 [id number] CRISTAL Cox [facility] - Gwendolyn Lopez [address] [place] [address] 07/10/2024 15:56:36 07/10/2024 16:23:39 Body mass index 20-24 - normal [id number] Z68.22 BMI is 22.2 Attention deficit hyperactivity disorder [id number] F90.9 stable on adderall ER 25mg daily; f/u 3 months. Long-term drug therapy [id number] Z79.899 routine cbc, cmp and TFTs due in september Cholesterol screening 27 [id number] Z13.220 fasting lipids due in september Diabetes m ellitus screening [id number] Z13.1 a1c screening is due in september Positive s creening for depression on PHQ-9 (Patient Health Questionnaire 9) [id number] 41646 Z13.31 pt scored a 5 on screening today and is stable on her medication regimen with no acute concerns or c/o. Health Concerns Section Related Observation LastModified by Organization Detai ls LastModified Time None Recorded Concern Status LastModified by Organization Details LastModified Time None Recorded Advance Directives Directive N: Payers Encounter Date Sequence Insurance Name Policy Number Policy Dickerson Covered Member ID Dickerson Member ID Guarantor Name 09/17/2023 1 [employer] [id number] WANG Crowley [id number] Ariane Homerosaadianita 03/31/2024 1 [place]) [id number] WANG Hameedmegganlloydshaina [id number] Arianewellington Crowley 07/10/2024 1 [employer] [id number] WANG Crowley [id number] Ariane Hameedmeggansaadianita Notes Date Note Type Note Provider Name and Address Organization Details Recorded Time 09/17/2023 text/html Anxiety/Depressi on Reported bypatient.Quality: symptoms improved Severity:denies suicidal ideations; able to maintain relationships; does not interfere with activities of daily living Duration:stablizin g Context:no major life stressors Modifying Factors:medication s as directed Associated Symptoms:denies homicidal ideations; no significant weight gain; no significant weight loss; no shortness of breath; mood good; energy good; maintaining functionality;anxi ety;anxiety with muscle tensionNotes:pt is stable on sertraline 100mg daily. She does have stress daily with her child and being a mom and spouse, but overall she is stable with no reported acute issues. ADHD hx: patient has been stable on adderal ER 25mg daily for a few years now. no complaints. adherent to f/u appts. no reported side effects. CRISTAL Cox Attn: [address] [place], [address], [facility] 10/07/2023 23:45:49 03/31/2024 text/html Anxiety/Depressi on Reported bypatient.Quality: symptoms improved Severity:denies suicidal ideations; able to maintain relationships; does not interfere with activities of daily living Duration:stablizin g Context:no major life stressors Modifying Factors:medication s as directed Associated Symptoms:denies homicidal ideations; no significant weight gain; no significant weight loss; no shortness of breath; mood good; energy good; maintaining functionality;anxi ety;anxiety with muscle tensionNotes:pt is stable on sertraline 100mg daily. ADHD hx: patient has been stable on adderal ER 25mg daily for a few years now. no complaints. adherent to f/u appts. no reported side effects. CRISTAL Cox Attn: [address] [place], [address], [facility] 04/09/2024 22:17:21 07/10/2024 text/html Anxiety/Depressi on Reported bypatient.Quality: symptoms improved Severity:denies suicidal ideations; able to maintain relationships; does not interfere with activities of daily living Duration:stablizin g Context:no major life stressors Modifying Factors:medication s as directed Associated Symptoms:denies homicidal ideations; no significant weight gain; no significant weight loss; no shortness of breath; mood good; energy good; maintaining functionality;anxi ety;anxiety with muscle tensionNotes:pt is stable on sertraline 100mg daily ADHD hx: patient has been stable on adderal ER 25mg daily for a few years now. no complaints. adherent to f/u appts. no reported side effects. CRISTAL Cox Attn: [address] [place], [address], [facility] 08/05/2024 22:37:25 OBGyn Episode No OBEpisode recorded.
--- OUTSIDE RECORDS SUMMARY | 2024-08-28 11:47 | XMS_ITS | Data Portability ---
Author Organization [place] [facility] [employer], Main Office Address [address] [place] [address] Assessment No assessment recorded. Plan of Treatment Reminders Order Date Submit Date Provider Last Modified By Organization Details Last Modified Time Details Appointments None record ed. Lab None record ed. Referral None record ed. Procedures None record ed. Surgeries None record ed. Imaging None record ed. Medication Orders None record ed. Patient TargetsNo targets recorded. Patient InstructionsNo instructions recorded. Reason for Referral None Reported. Results Created Date Observation Date Name Description Value Unit Range Abnormal Flag Note LastModifiedBy Organization Detail LastModifiedTime 11/13/[address], tempo ral bone, w/wo contr ast No observ ation record ed. [email or web address] Not Available 2022 12:14:39 11/13/[address], head, w/wo contr ast No observ ation record ed. [email or web address] Not Available 2022 12:15:09 12/10/19 23 audio gram + tympa nogra m No observ ation record ed. [email or web address] [facility] [address], [place], [address], 12/10/2022 08:41:26 12/12/19 23 audio gram + tympa nogra m No observ ation record ed. [email or web address] [facility] [address], [place], [address], 12/23/2022 12:14:10 Result Notes None recorded. Problems Name Problem SNOMED Code Status Onset Date Resolution Date Notes Provider Name and Address Organization Details Recorded Time Dysfunctio n of bilateral eustachian tubes 5948394057366 100 Active 2021 Not Available [facility] 3 06:15:03 Generalize d anxiety disorder 15621431 Active 2020 Not Available [facility] 3 06:15:03 Irritable bowel syndrome characteri zed by constipati on 000169156 Active 2020 Not Available [facility] 3 06:15:03 Adult attention deficit hyperactiv ity disorder 834537949 Active 2017 Not Available 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 Procedures Surgical History Date Name Laterality Status Provider Name and Address Organization Details Recorded Time 11/26/19 22 Cyst Removal completed Not Available [facility] 07/08/2022 06:09:31 02/08/20 21 in vitro fertilization using donor eggs completed Not Available [facility] 07/08/2022 06:09:31 08/09/19 20 in vitro fertilization using donor eggs completed Not Available [facility] 07/08/2022 06:09:31 04/09/20 19 Date of Last Pap Smear completed Not Available [facility] 07/08/2022 06:09:27 05/10/19 18 Date of Last Colonoscopy completed Not Available [facility] 07/08/2022 06:09:27 Cholecystectomy completed Not Available [facility] 07/08/2022 06:09:31 Imaging Results Imaging Date Name Status LastModified by Organiz ation Details LastModified Time 11/12/2022 CT, temporal bone, w/wo contrast completed Information not available 12/23/2022 12:14:39 11/12/2022 CT, head, w/wo contrast completed Information not available 12/23/2022 12:15:09 12/09/2022 audiogram + tympanogram completed [email or web address] [facility] [address], [place], [address], 12/10/2022 08:41:26 12/11/2022 audiogram + tympanogram completed [email or web address] [facility] [address], [place], [address], 12/23/2022 12:14:10 Procedure Notes None recorded. Medical Equipment None Reported. Allergies No known drug allergies Medications Name Sig Start Date Stop Date Status Note LastModified by Organization Details LastModified Time BD Regular [employer] 27 gauge x 1/2 USE DIRECTED active Not Available Not Available No t Available venlafaxi ne ER 37.5 mg capsule,e xtended release 24 hr 01/20 completed Not Available Not Available Not Available BD Luer-Marty Syringe 3 mL 20 gauge x 1 1/2 USE DIRECTED [MENOPUR MEDICATI ON] active Not Available Not Available No t Available doxycycli ne hyclate 100 mg capsule 03/16 completed Not Available Not Available Not Available hydrocort isone-pra moxine 2.5 %-1 % rectal cream APPLY NIGHTLY DIRECTED . FOR 7-10 DAYS. 03/16 completed Not Available Not Available Not Available azithromy luis enrique 250 mg tablet TAKE 2 TABLETS (500 MG) BY ORAL ROUTE ONCE DAILY FOR 1 DAY THEN 1 TABLET (250 MG) BY ORAL ROUTE ONCE DAILY FOR 4 DAYS 11/12 completed Not Available Not Available Not Available ondansetr on HCl 4 mg tablet 05/31 completed Not Available Not Available Not Available prednison e 20 mg tablet active Not Available Not Available Not Available spironola ctone 100 mg tablet TAKE 1 TABLET BY MOUTH EVERY DAY active Not Available Not Available No t Available sertralin e 100 mg tablet TAKE 1 TABLET BY MOUTH EVERY DAY active Not Available Not Available No t Available metronida zole 500 mg tablet 03/16 completed Not Available Not Available Not Available lamotrigi ne 25 mg tablet TAKE 2 TABLETS BY MOUTH EVERY DAY 11/26 completed Not Available Not Available Not Available dextroamp hetamine- amphetami ne ER 20 mg 24hr capsule,e xtend release TAKE 1 CAPSULE BY MOUTH DAILY active Not Available Not Available No t Available erythromy luis enrique 5 mg/gram (0.5 %) eye ointment APPLY 1 CM RIBBON INTO THE LOWER CONJUNCT IVAL SAC(S) IN THE AFFECTED EYE(S) BY OPHTHALM IC ROUTE 3 TIMES PER DAY active Not Available Not Available No t Available dexametha sone 4 mg tablet 06/23 completed Not Available Not Available Not Available gabapenti n 300 mg capsule TAKE 2 CAPSULES NEEDED FOR PAIN EVERY 6 HOURS DIRECTED 11/26 completed Not Available Not Available Not Available sertralin e 25 mg tablet TAKE 1 TABLET BY MOUTH EVERY DAY 07/17 completed Not Available Not Available Not Available estradiol 2 mg tablet TAKE 2 TABLETS BY MOUTH DAILY DIRECTED 11/26 completed Not Available Not Available Not Available letrozole 2.5 mg tablet TAKE 3 TABLETS BY MOUTH DAILY DIRECTED 11/26 completed Not Available Not Available Not Available methylpre dnisolone 4 mg tablets in a dose pack FOLLOW PACKAGE DIRECTIO NS 06/22 completed Not Available Not Available Not Available fluoxetin e 20 mg capsule takes one tab daily 09/21 completed Not Available Not Available Not Available metformin ER 500 mg tablet,ex tended release 24 hr TAKE 1 TABLET BY MOUTH EVERY DAY AT DINNER 11/26 completed Not Available Not Available Not Available sertralin e 50 mg tablet take one tab po daily x 15 days of month, then 2 tabs po daily remainin g month. 01/03 completed Not Available Not Available Not Available BD Luer-Marty Syringe 3 mL 22 x 1 1/2 USE DIRECTED active Not Available Not Available No t Available metoclopr amide 10 mg tablet TAKE 1 T PO QD PRN active Not Available Not Available No t Available dextroamp hetamine- amphetami ne ER 25 mg 24hr capsule,e xtend release TAKE 1 CAPSULE BY MOUTH ONCE DAILY active Not Available Not Available No t Available escitalop nathaly 10 mg tablet 09/21 completed Not Available Not Available Not Available ganirelix 250 mcg/0.5 mL subcutane ous syringe INJECT 250 MCG SUBCUTAN EOUSLY DIRECTED 11/26 completed Not Available Not Available Not Available Follistim AQ 300 unit/0.36 mL subcutane ous cartridge INJECT 25-450 IU SUBCUTAN EOUSLY DIRECTED active Not Available Not Available No t Available Menopur 75 unit subcutane ous solution INJECT 75-225 IU SUBCUTAN EOUSLY DIRECTED 11/26 completed Not Available Not Available Not Available intrauter ine device (IUD) use as directed 09/21 completed livetta Not Available Not Available Not Available drospiren one 3 mg-ethiny l estradiol 0.02 mg tablet TAKE 1 TABLET BY MOUTH DAILY active Not Available Not Available No t Available BD Luer-Marty Syringe 1 mL USE DIRECTED FOR HALF DOSING OF GANIRELI X active Not Available Not Available No t Available tranexami c acid 650 mg tablet TAKE 2 TABLETS BY MOUTH THE MORNING OF EGG RETRIEVA L WITH A SMALL SIP OF WATER DIRECTED 11/26 completed Not Available Not Available Not Available azelastin e 137 mcg-fluti casone 50 mcg/spray nasal spray SHAKE LIQUID AND USE 1 SPRAY IN EACH NOSTRIL EVERY 12 HOURS FOR 7 DAYS active Not Available Not Available No t Available Linzess 145 mcg capsule Take 1 capsule every day by oral route. 01/05 completed Not Available Not Available Not Available adapalene 0.3 % topical gel with pump 11/20 completed Not Available Not Available Not Available Simpesse 0.15 mg-30 mcg (84)/10 mcg(7) tablets,3 month dose pack TAKE 1 TABLET BY MOUTH EVERY DAY 03/31 completed Not Available Not Available Not Available ID NOW COVID-19 Test Kit TEST DIRECTED active Not Available Not Available No t Available Vitals Date Recorded Body mass index (BMI) Body height Oxygen saturation Oxygen saturation in Arterial blood by Pulse oximetry Heart rate Respiratory rate Body temperature Body weight Systolic blood pressure Diastolic blood pressure Provider Name and Address Organization Details Last Updated DateTime 2 23.2 kg/m2 170.18 cm 98 % 98 % 109 /min 16 /min 97.6 [degF] 40998.5 7 g 120 mm[Hg] 80 mm[Hg] Not Available [facility] 3 06:13:11 Date Recorded Body mass index (BMI) Body height Oxygen saturation Oxygen saturation in Arterial blood by Pulse oximetry Heart rate Respiratory rate Body temperature Body weight Systolic blood pressure Diastolic blood pressure Provider Name and Address Organization Details Last Updated DateTime 2 24 kg/m2 170.18 cm 99 % 99 % 86 /min 16 /min 98 [degF] 03776.6 3 g 120 mm[Hg] 72 mm[Hg] Not Available [facility] 3 06:13:11 Date Recorded Body mass index (BMI) Body height Oxygen saturation Oxygen saturation in Arterial blood by Pulse oximetry Heart rate Body temperature Body weight Systolic blood pressure Diastolic blood pressure Provider Name and Address Organization Details Last Updated DateTime 3 22.4 kg/m2 170.18 cm 98 % 98 % 82 /min 97.6 [degF] 42988.7 1 g 112 mm[Hg] 76 mm[Hg] Not Available [facility] 3 06:13:12 Date Recorded Body height Body mass index (BMI) Body weight Body temperature Provider Name and Address Organization Details Last Updated DateTime 11/12/2022 170.18 cm 22.9 kg/m2 96567.92 g 97.6 [degF] Ariane Wilkes RN [facility] [employer] 11/12/2022 14:52:36 Date Recorded Body height Body temperature Body mass index (BMI) Body weight Respiratory rate Oxygen saturation Oxygen saturation in Arterial blood by Pulse oximetry Heart rate Systolic blood pressure Diastolic blood pressure Provider Name and Address Organization Details Last Updated DateTime 3 170.18 cm 97.7 [degF] 22.9 kg/m2 94388.4 9 g 16 /min 98 % 98 % 105 /min 120 mm[Hg] 72 mm[Hg] JOSELINE Niño [facility] Joosy [facility] 3 16:24:34 Social History Question Answer Notes LastModified by Organizat ion Details LastModified Time Tobacco Smoking Status Never Smoker Not Available [facility] 07/08/2022 06:08:39 What Is Your Level Of Alcohol Consumption? Occasional [id number] Information not available 07/08/2022 What Is Your Level Of Caffeine Consumption? Moderate [id number] Information not available 07/08/2022 How Much Tobacco Do You Chew? None [id number] Information not available 07/08/2022 In The 14 Days Before Symptom Onset, Have You Had Close Contact With A Laboratory-confir med COVID-19 While That Case Was Ill? No [id number] Information not available 07/08/2022 In The 14 Days Before Symptom Onset, Have You Had Close Contact With A Person Who Is Under Investigation For COVID-19 While That Person Was Ill? No [id number] Information not available 07/08/2022 Are You Currently Employed? Yes [email or web address] Information not available 01/04/2023 What Type Of Diet Are You Following? REGULAR [id number].[id number] Information not available 07/08/2022 Which Illicit Or Recreational Drugs Have You Used? None [id number].[id number] Information not available 07/08/2022 Do You Or Have You Ever Used E-cigarettes Or Vape? 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 No MIGRATION.[id number] 4633 Information not available 07/08/2022 Do You Use Insect Repellent Routinely? No MIGRATION.[id number] Information not available 07/08/2022 What Is Your Relationship Status? MIGRATION.[id number] Information not available 07/08/2022 Do You Use Your Seat Belt Or Car Seat Routinely? Yes MIGRATION.[id number] 6588 Information not available 07/08/2022 Do You Have Smoke And Carbon Monoxide Detectors In Your Home? Yes MIGRATION.[id number] 2803 Information not available 07/08/2022 Do You Or Have You Ever Used Smokeless Tobacco? Never Used Smokeless Tobacco MIGRATION.348091 8380 Information not available 07/08/2022 How Much Tobacco Do You Smoke? No MIGRATION.[id number] 9269 Information not available 07/08/2022 Do You Use Any Illicit Or Recreational Drugs? No MIGRATION.[id number] 0642 Information not available 07/08/2022 Do You Use Sunscreen Routinely? Yes MIGRATION.[id number] 1469 Information not available 07/08/2022 Have You Recently Traveled Abroad? No MIGRATION.960876 9953 Information not available 07/08/2022 Do You Have Any Dietary Restrictions? No MIGRATION.108950 9086 Information not available 07/08/2022 Do You Or Have You Ever Used Any Other Forms Of Tobacco Or Nicotine? No MIGRATION.128783 2087 Information not available 07/08/2022 Sex: Unknown Functional Status Question Answer Note LastModified by Organizat ion Details LastModified Time What is your exercise level? Moderate [id number] Information not available 07/08/2022 Mental Status None recorded. Family History Relationship Description Onset Age of this Age Resolved Age Notes LastModified by Organization Details LastModified Time Father Diabetes mellitus [id number] Not available 07/08/2022 06:09:36 Father Hypertensive disorder [id number] Not available 07/08/2022 06:09:36 Notes:NO ENT Medical History Condition Response GI PROBLEMS Y ANXIETY DISORDER Y DEPRESSION (INCLUDING POST ) Y Gynecological History Statement/Question Response Abnormal Pap Y Date of Last Colonoscopy 05/10/2017 Date of LMP 04/07/2021 Sexually Active? Y Date of Last Pap 04/09/2019 Date of Last Pap Smear 04/09/2019 Current Control Method None Breast Problems no Obstetrics History GPAL:G 0 P 0 0 0 0 Immunizations Vaccine Type Date Status Note Provider Nam e and Address Organization Details Recorded Time SARS-COV-2 (COVID-19) vaccine, UNSPECIFIED completed Not Available [facility] 07/08/2022 06:20:25 Past Encounters Encounter ID Performer Location Encounter Start Date Encounter Closed Date Diagnosis/Indication Diagnosis SNOMED-CT Code Diagnosis ICD10 Code Diagnosis Note [id number] [facility] [place] [address] [place] [address] 11/20/2020 00:00:00 12/06/2020 10:23:50 [id number] [facility] [place] [address] [place] [address] 03/31/2021 00:00:00 03/31/2021 13:29:59 [id number] _DEBBIEENA_M IGRATION_ DEFAULT_1 _1 , 04/15/2021 00:00:00 04/15/2021 13:49:58 [id number] [facility] [place] [address] [place] [address] 05/21/2021 00:00:00 06/09/2021 14:13:52 [id number] [facility] [place] [address] [place] [address] 11/26/2021 00:00:00 11/26/2021 09:58:15 [id number] [facility] [place] [address] [place] [address] 06/23/2022 00:00:00 07/06/2022 00:14:11 [id number] Sergey Rico MD [facility] [place] [address] [place] [address] 11/12/2022 14:37:27 11/12/2022 16:33:06 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 labs are UTD from july. Adult atte ntion deficit hyperactivity disorder 932360328 F90.9 pt will look to establish and consult with psychiatry in [facility] to discuss adhd management . Generalize d anxiety disorder 80177258 F41.1 stable on sertraline 100mg daily. Long-term drug therapy 554180159 Z79.899 Health Concerns Section Related Observation LastModified by Organization Detai ls LastModified Time None Recorded Concern Status LastModified by Organization Details LastModified Time None Recorded Advance Directives Directive None Recorded Payers Encounter Date Sequence Insurance Name Policy Number Policy Dickerson Covered Member ID Dickerson Member ID Guarantor Name 11/12/2022 1 [facility]: ([place] [id number] WANG Crowley [id number] Ariane Subramanianrandamarva 01/05/2023 1 [employer] [id number] WANG Crowley [id number] Ariane Crowley Notes Date Note Type Note Provider Name and Address Organization Details Recorded Time 05/21/2021 text/html Adult ADHDReport ed bypatient.Timing of Symptoms:chronic ADHD Context:increased productivity at work; improved school performance; able to set limits with obligations; no dysfunction in family; no financial problems Modifying factors:medications as directed ADHD Associated Symptoms Inattention:able to pay attention; well organized; does not make careless mistakes; not easily distracted; attention to detail; not forgetful; no difficulty focusing; not bored easily; no daydreaming; no confusion; no difficulty processing information; no difficulty following instructions ADHD Associated Symptoms Impulsivity:patient; does not interrupt conversations/activit ies; does not blurt out inappropriate comments; shows emotion with restraint ADHD Associated Symptoms Hyperactivity:does not fidget/squirm; no excessive talking; does not run/move in inappropriate situations; not constantly in motion; no difficulty with quiet tasks/activitiesNotes :She says the medication works but it stops around 1pm every day.Anxiety/Depressio nReported bypatient.Quality:sym ptoms improved Severity:denies suicidal ideations; able to maintain relationships; does not interfere with activities of daily living Duration:symptoms lasting over 2 weeks Onset/Timing:still present Context:major life stressors Modifying Factors:medications as directed Associated Symptoms:denies homicidal ideations; no significant weight gain; no significant weight loss; no visual/auditory hallucinations; no delusions; no shortness of breath; mood good; no anxiety; no crying spells; no panic; no isolation; sleeping well; appetite good; energy good; no apathy; maintaining functionality Generic HPI TemplateReported bypatient.Quality:IBS Not Available [facility] [employer] 06/09/2021 14:13:52 11/26/2021 text/html Adult ADHDReport ed bypatient.Notes:stabl e on medication.Anxiety/De pressionReported bypatient.Quality:franco snt matter time of day Severity:denies suicidal ideations; able to maintain relationships; does not interfere with activities of daily living Duration:symptoms lasting over 2 weeks Onset/Timing:still present Context:major life stressors Modifying Factors:medications as directed Associated Symptoms:denies homicidal ideations; no significant weight gain; no significant weight loss; no visual/auditory hallucinations; no delusions; no shortness of breath; mood good; no anxiety; no crying spells; no panic; no isolation; sleeping well; appetite good; energy good; no apathy; maintaining functionality Not Available [employer] 11/26/2021 09:58:15 06/23/2022 text/html Adult ADHDReport ed bypatient.ADHD Context:increased productivity at work; improved school performance; able to set limits with obligations; no dysfunction in family; no financial problems Modifying factors:medication adherence: greater than 90% ADHD Associated Symptoms Inattention:able to pay attention; well organized; does not make careless mistakes; not easily distracted; attention to detail; not forgetful; no difficulty focusing; not bored easily; no daydreaming; no confusion; no difficulty processing information; no difficulty following instructions ADHD Associated Symptoms Impulsivity:patient; does not interrupt conversations/activit ies; does not blurt out inappropriate comments; shows emotion with restraint ADHD Associated Symptoms Hyperactivity:does not fidget/squirm; no excessive talking; does not run/move in inappropriate situations; not constantly in motion; no difficulty with quiet tasks/activitiesNotes :stable on medication.Anxiety/De pressionReported bypatient.Quality:franco snt matter time of day Severity:denies suicidal ideations; able to maintain relationships; does not interfere with activities of daily living Duration:symptoms lasting over 2 weeks Onset/Timing:still present Context:major life stressors Modifying Factors:medications as directed Associated Symptoms:denies homicidal ideations; no significant weight gain; no significant weight loss; no visual/auditory hallucinations; no delusions; no shortness of breath; mood good; no anxiety; no crying spells; no panic; no isolation; sleeping well; appetite good; energy good; no apathy; maintaining functionality Not Available [employer] 07/06/2022 00:14:11 11/12/2022 text/html 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 This happened almost immediately. It is bilateral worse on the left side. She has had a CT of her temporal bone which is normal she has had a CT angiogram which was also normal. She does have eustachian tube dysfunction but it is not been problematic recently. Sergey Rico MD [address], [facility] [address], [place], [address], [facility] 11/12/2022 15:21:31 01/05/2023 text/html Adult ADHDReport ed bypatient.Notes:on adderall XR 25mg daily. it doesn't seem to last as long lately thoughAnxiety/Depress ionReported bypatient.Severity:de nies suicidal ideations; able to maintain relationships; does not interfere with activities of daily living Duration:symptoms lasting over 2 weeks Onset/Timing:still present; stable Context:major life stressors;trouble at work Associated Symptoms:denies homicidal ideations; no significant weight gain; no significant weight loss; no visual/auditory hallucinations; no delusions; no shortness of breath Wellness CRISTAL Cox [address], [facility] [address], [place], [address], [facility] 01/05/2023 18:10:37 OBGyn Episode No OBEpisode recorded.
--- OUTSIDE RECORDS SUMMARY | 2024-08-28 11:47 | XMS_ITS | Continuity of Care Document ---
Author Organization [facility] Address [address] [place] [address] Phone Care Team Providers Care Insurance Claims Processor Name Role Phone Amy Pacheco Unavailable Unavailab le Allergies, Adverse Reactions, Alerts Substance Reaction Status Criticality No Known Allergies Active No Inform ation Medications Medication Instructions Dosage Effective Dates (start - stop) Status Comments Adderall XR 25 mg capsule,extended release take 1 capsule by oral route every day in the morning upon awakening 25 MG - Active spironolactone 100 mg tablet take 1 tablet by oral route every day 100 MG - Active metformin ER 500 mg tablet,extended release 24hr (osmotic) take 1 tablet by oral route 2 times every day with the evening meal 500 MG - Active Procedures Procedure Date OFFICE [id number] BODY MASS INDEX DOCD SYST BP LT 130 MM HG DIAST BP < 80 MM HG Advance Directives Directive Yes / No Effective Date File Name No Information Encounters Encounter Description Practice Location Reason(s) For Visit Diagnoses Date Provider Providers Copied on Encounter OFFICE [id number], [address], [place], [place], [id number] , [place] tel: [phone] [facility] Bloating (chief complaint) Other constipationAbdomi nal bloating [address], [place], [id number] , [place]. tel:[phone] Referring Provider: Tatyana Manriquez, [address], [place], [address]. tel:[phone] Family History Family Member Type Diagnosis Age At Onset No Information Payers Payer name Insurance type Covered democrat ID Farhat krishnamurthy(s) PHILLIP CABALLERO EPO BL [id number] Social History Type Description Quantity Date Captured Comments Alcohol Use Details beer & wine 1 glass occasionally Caffeine Use Details coffee 1 cup per day Tobacco Use Status Current non-smoker Smoking Status Never smoker Non-Smoking Tobacco Use Details : No Details Available : No Details Available Sex Female Vital Signs Date / Time: Height Weight BMI Pulse Rate Blood Pressure Temperature Respiratory Rate Body Surface Area Head Circumference Head Circ. Percentile Wt./Abilio. Percentile BMI percentile Pulse Ox Inhaled Ox 2:13 PM 67.00 in 64.410 kg (142.00 lbs) 22.2 4 kg/m eter (2) 89 /min 98/76 mm[Hg] 18 /min Chief Complaint And Reason For Visit From encounter dated '06/30/2023 14:00'. Bloating (chief complaint). Description: 32 year old female that presents for bloating. Denies family hx of IBD and colon cancer. In 2015, she was noted to have a hernia, and was told she had GERD. Normal colonoscopy in 2018. She reports history of constipation, she has bad bloating constantly. Shefeels like the upper abdomen is hard. She has increased belching, uses Pepcid or Pepto does help. Moves her bowels twice weekly, uses otc laxatives she tried [employer] insurance did not cover the medication at the time. Eating causes more bloating. If she eats pork will vomit. Red sauces increase heartburn symptoms. Weight stable, she is trying to lose weight. She will note blood in stools. Reason For Referral Reason For Referral No Information History Of Present Illness Encounter Date Complaint History Of Prese nt Illness Bloating 32 year old armani andrade that presents for bloating. Denies family hx of IBD and colon cancer. In 2015, she was noted to have a hernia, and was told she had GERD. Normal colonoscopy in 2018. She reports history of constipation, she has bad bloating constantly. She feels like the upper abdomen is hard. She has increased belching, uses Pepcid or Pepto does help. Moves her bowels twice weekly, uses otc laxatives she tried [employer] insurance did not cover the medication at the time. Eating causes more bloating. If she eats pork will vomit. Red sauces increase heartburn symptoms. Weight stable, she is trying to lose weight. She will note blood in stools. Functional Status Date Functional Assessmen t No Information Instructions Date Instruction Additional Infor mation We are sending you h ome with a Sucrase breath testWe are also ordering a breath test that will be done at [facility] Related to Abdominal bloating Take the Linzess onc e daily 30 minutes before a meal, you may have some diarrhea this is a normal side effect that improves with continued useFollow up in the office in 6-8 weeks Related to Other constipation Assessments Type Assessment Date assessment Other constipation assessment Abdominal bloating Mental Status Date Cognitive Assessment Orientation - [place] ed to time, place, person, situation. Patient Care Teams Name Effective Dates (start - stop) Status Members No Information
[2024-08-28 12:37] LABS: BEDSIDEPREGUCG Negative (Negative)
[2024-08-28 12:58] LABS: Amphetamine Screen Urine Positive (Negative); Barbiturate Screen Urine Negative (Negative); Benzodiazepines Screen Urine Negative (Negative); Cannabinoid Screen Urine Negative (Negative); Cocaine Screen Urine Negative (Negative); Methadone Screen Urine Negative (Negative); Opiate Screen Urine Negative (Negative); Phencyclidine Screen Urine Negative (Negative)
--- OUTSIDE RECORDS SUMMARY | 2024-08-28 13:01 | XMS_ITS | Clinical Summary ---
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
--- OUTSIDE RECORDS SUMMARY | 2024-08-28 13:01 | XMS_ITS | Continuity of Care Document ---
Author Organization [facility] Address [address] [place] [address] Phone Care Team Providers Care Weft Straightener Name Role Phone Amy Pacheco Unavailable Unavailab [...] MG - Active Procedures Procedure Date OFFICE [id number] BODY MASS INDEX DOCD SYST BP LT 130 MM HG DIAST BP < 80 MM HG Advance Directives Directive Yes / No Effective Date File Name No Information Encounters Encounter Description Practice Location Reason(s) For Visit Diagnoses Date Provider Providers Copied on Encounter OFFICE [id number], [address], [place], [place], [id number] , [place] tel: [phone] [facility] Bloating (chief complaint) Other constipationAbdomi nal bloating [address], [place], [id number] , [place]. tel:[phone] Referring Provider: Tatyana Manriquez, [address], [place], [address]. tel:[phone] Family History Family Member Type Diagnosis Age At Onset No Information Payers Payer name Insurance type Covered republican ID Farhat krishnamurthy(s) PHILLIP CABALLERO EPO BL [id number] Social History Type Description Quantity Date Captured [...] breath test that will be done at [facility] Related to Abdominal bloating Take the Linzess onc e daily 30 minutes before a meal, you may have some diarrhea this is a normal side effect that improves with continued useFollow up in the office in 6-8 weeks Related to Other constipation Assessments Type Assessment Date assessment Other constipation assessment Abdominal bloating Mental Status Date Cognitive Assessment Orientation - [place] ed to time, place, person, situation. Patient Care Teams Name Effective Dates (start - stop) Status Members No Information
[2024-08-28 13:07] LABS: Add Urine Microscopic? YES; Appearance Urine Clear (Clear); Bacteria Urine None Seen /hpf; Bilirubin Urine Negative (Negative); Blood Urine Negative (Negative); Color Urine Dark Yellow (Yellow); Glucose Urine UA Negative (Negative); Ketones Urine Trace mg/dL (Negative); Leukocyte Esterase Ur Negative LEU/UL (Negative); Mucus Urine Present /lpf; Need Manual Microscopic Reviewed; Nitrate Urine Negative (Negative); Protein Urine Trace mg/dL (Negative); RBC Urine 0-2 /hpf (0-2); Specific Grav Ur 1.033 (1.001-1.035); Squamous Epithelial Cell Urine None Seen /hpf (Few); Urobilinogen Urine 0.2 mg/dL (<2.0); WBC Urine 0-5 /hpf (0-3); pH Urine 5.5 (5.0-9.0)
[2024-08-28 15:00] VITALS: BP 114/83; PULSE 90; RESP 16; O2SAT 99
[2024-08-28] MEDS: DICYCLOMINE HCL 10 MG CAPSULE 20 MG PO (15:20)
[2024-08-28] MEDS: diphenhydrAMINE HCl INJ 50 MG/ML VIAL 25 MG IV PUSH (15:20)
[2024-08-28] MEDS: METOCLOPRAMIDE HCL INJ 10 MG/2 ML VIAL IV PUSH (15:20)
[2024-08-28 16:00] VITALS: BP 107/78; PULSE 87; RESP 18; O2SAT 99
== END 2024-08-28 16:39 | disposition home or self-care (01) ==
PROVIDERS: Emergency Provider Registered Nurse; PCP Physician Assistant
DX: K52.9 Noninfective gastroenteritis and colitis, unspecified (principal); K59.00 Constipation, unspecified; K58.9 Irritable bowel syndrome, unspecified; F41.9 Anxiety disorder, unspecified; F98.8 Other specified behavioral and emotional disorders with onset usually occurring in childhood and adolescence; Z90.49 Acquired absence of other specified parts of digestive tract
CPT/HCPCS: 36415; 74177; 80053; 80307; 81001; 81025; 83690; 85025; 96361; 96374; 96375; 99284; A9270; J1200; J2405; J2765; J7030; Q9967

== ENCOUNTER 2024-11-26 08:06 | Emergency (ER) | payer BC, SELFPAY ==
[2024-11-26 08:17] VITALS: BP 110/81; PULSE 103; RESP 16; TEMP 36.6; O2SAT 100
[2024-11-26 08:25] LABS: EDSTREPNEGPOS1 Positive (Negative)
--- NOTE | 2024-11-26 08:32 | ED.URI ---
HPI - URI/Sore Throat General Chief Complaint: Upper Respiratory Infection Stated Complaint: Strep Symptoms Time Seen by Provider: 11/26/24 08:27 Source: patient and RN notes reviewed Mode of arrival: ambulatory Limitations: no limitations History of Present Illness HPI Narrative: Patient presents today complaining of a 2 day history of body aches, fatigue, dizziness, headache with sore throat that started this morning. Denies shortness of breath or difficulty swallowing. Also denies congestion, rhinorrhea, fever. She currently rates her pain 7/10 with swallowing. She has been taking ibuprofen without much relief. No recent antibiotic use. Related Data Home Medications ?Medication ?Instructions ?Recorded ?Confirmed ?Last Taken ?Type dextroamphetamine-amphetamine ER 25 mg PO DAILY 06/15/22 10/21/23 Unknown History 25 mg 24hr capsule,extend release (Adderall XR) sertraline 50 mg tablet 50 mg PO DAILY 06/15/22 10/21/23 Unknown History spironolactone 100 mg tablet 100 mg PO DAILY 06/15/22 10/21/23 Unknown History Allergies Allergy/AdvReac Type Severity Reaction Status Date / Time No Known Allergies Allergy Verified 11/26/24 08:19 [facility] Past Medical History Medical History IBS (irritable bowel syndrome) Anxiety History of in vitro fertilization In vitro fertilization using donor eggs ADD (attention deficit disorder) Surgical History Surgical History [place] teeth extracted History of removal of ovarian cyst History of cholecystectomy Family History Family History Father Diabetes mellitus Hypertension Grandparent Breast cancer Malignant neoplasm of ovary Social History Social History Smoking status: Never smoker Alcohol intake: current Alcohol use details: occasional Substance use: never Do You Feel Safe in your Home?: Yes Lack of Transportation: No Lack of Food: Never True Current Housing: I Have Housing Concerned About Future Housing: No Difficulty Paying Gas/Electric Bills: No Difficulty Paying for Meds: No Currently Unemployed: No Education: Associate Degree Difficulty w/ Childcare or Family Care: No Living arrangements: with family Occupation/Education: occupation Additional occupation/education comments: banker Gender identity (if verbalized by the patient): Female Sexual Orientation (if Verbalized by the Patient): Straight or Heterosexual Comments Reviewed Exam Narrative: GENERAL: Well-appearing, well-nourished, and in no acute distress. HEAD: Normocephalic, atraumatic. EYES: EOMI. No redness or drainage. Conjunctivae normal. ENT: Mucous membranes pink and moist. Nares clear. No rhinorrhea. TMs normal bilaterally. Throat erythematous without edema or exudate. Uvula midline. NECK: Normal AROM. Supple. No lymphadenopathy. CHEST: No respiratory distress. Clear to auscultation. HEART: Regular rate and rhythm. No murmur appreciated. EXTREMITIES: Normal range of motion. No edema. SKIN: Warm, dry, no rash. Capillary refill normal. Normal skin turgor. NEURO: No focal deficits. Alert and oriented x3. Gait steady. PSYCH: Normal affect. No signs of depression or anxiety. Course Course Level of Care: Express Care Visit Vital Signs Vital signs: Vital Signs Temperature 98 F 11/26/24 08:17 Pulse Rate 103 H 11/26/24 08:17 Respiratory Rate 16 11/26/24 08:17 Blood Pressure 110/81 11/26/24 08:17 Pulse Oximetry 100 11/26/24 08:17 Temperature 98 F 11/26/24 08:17 Pulse Rate 103 H 11/26/24 08:17 Respiratory Rate 16 11/26/24 08:17 Blood Pressure 110/81 11/26/24 08:17 Pulse Oximetry 100 11/26/24 08:17 Reviewed MDM - URI/Sore Throat MDM Narrative Medical decision making narrative: 34-year-old female patient presents today 2 day history of body aches, fatigue, headache, dizziness with sore throat that started this morning. Upon exam, patient's pharynx is erythematous without edema or exudate. Vital signs are stable with slight tachycardia at 1:03 a.m., likely due to pain with swelling, as patient has no exam findings or other vital signs consistent with sepsis. Rapid strep positive. Prescription for amoxicillin sent to pharmacy. Anticipatory guidance given. Differential Diagnosis Differential diagnosis: Likely upper respiratory infection, viral infection, pharyngitis and other (Strep throat) Lab Data Attestation: I reviewed the patient's lab results. Labs: Lab Results 11/26/24 Range/Units 08:23 POC Grp A Strep Screen Positive (Negative) Critical Care Time Critical Care Time Critical Care Time: No Discharge Plan Discharge Clinical Impression: Strep throat Patient Disposition: Home Condition: Stable Instructions: Antibiotic Form, Strep Throat (DC) Additional Instructions: You have tested positive for strep throat. Please take the amoxicillin as prescribed until gone. You will be contagious for 24 hours after starting the medication. Take Tylenol or Ibuprofen for pain or fever, if able. Rest and stay hydrated. Follow up with your PCP in 3 days if symptoms are not improving. Go to the ER immediately if you develop worsening symptoms such as shortness of breath, difficulty swallowing. Patient Language: Yi Prescriptions: New amoxicillin 875 mg tablet 875 mg PO Q12H 10 Days Qty: 20 0RF No Action dextroamphetamine-amphetamine [Adderall XR] 25 mg capsule,extended release 24hr 25 mg PO DAILY sertraline 50 mg tablet 50 mg PO DAILY spironolactone 100 mg tablet 100 mg PO DAILY L norgest/e.estradiol-e.estrad 0.15 mg-30 mcg (84)/10 mcg (7) tablets,dose pack,3 month 1 tablet PO Q24H Qty: 91 4RF lactulose 20 gram packet 20 g PO QID Qty: 30 0RF dicyclomine 20 mg tablet 20 mg PO TID Qty: 20 0RF ondansetron 8 mg tablet,disintegrating 8 mg PO Q12H PRN (Reason: nausea and vomiting) Qty: 10 0RF Follow-up/Referrals: PHYSICIAN,COMMUNICATIONS PROJECT LEAD [Primary Care Provider] - Stand Alone Forms: Work/School Release IP Time of Disposition: 08:36
== END 2024-11-26 08:40 | disposition home or self-care (01) ==
PROVIDERS: Emergency Provider Nurse Practitioner
DX: J02.0 Streptococcal pharyngitis (principal); F98.8 Other specified behavioral and emotional disorders with onset usually occurring in childhood and adolescence; F41.9 Anxiety disorder, unspecified
CPT/HCPCS: 87880; 99213; G0463